=== PATIENT | female | born 1970 | race Caucasian/White ===

== ENCOUNTER 2020-09-08 16:00 | Emergency (ER) | payer BC ==
[~2020-09-08] VITALS: Ht 172.7 cm; Wt 104.3 kg
[2020-09-08] MEDS ORDERED: BISOPROLOL FUMA10 MG (16:34)
[2020-09-08] MEDS ORDERED: TIROSINT100 MCG (16:35)
[2020-09-08] MEDS ORDERED: HYDRODIURIL12.5 MG (16:35)
[2020-09-08] MEDS ORDERED: ESCITALOPRA5 MG/5 ML (16:35)
[2020-09-08] MEDS ORDERED: NASAL MIST126 ML (16:36)
== END 2020-09-08 17:20 | disposition home or self-care (01) ==
LOC: ER 16:00
DX: G51.0 Bell's palsy (principal)